=== PATIENT | female | born 2000 | race African-American/Black ===

== ENCOUNTER 2018-07-24 12:21 | Emergency (ER) | payer MEDICAID ==
[~2018-07-24] VITALS: Ht 165.1 cm; Wt 114.0 kg
[2018-07-24 16:53] VITALS: BP 106/46
== END 2018-07-24 16:52 | disposition home or self-care (01) ==
LOC: ER 12:21
DX: S70.361A Insect bite (nonvenomous), right thigh, initial encounter (principal); W57.XXXA Bitten or stung by nonvenomous insect and other nonvenomous arthropods, initial encounter; Y93.89 Activity, other specified; Y92.89 Other specified places as the place of occurrence of the external cause
CPT/HCPCS: 99282